=== PATIENT | male | born 1960 | race African-American/Black ===

== ENCOUNTER 2022-04-18 10:27 | Inpatient (IN) | payer MEDICARE, OTHER ==
[~2022-04-18] VITALS: Ht 182.9 cm; Wt 77.1 kg
--- NOTE | 2022-04-18 11:00 | NUR ---
URINE COLLECTED AND SENT TO LAB
--- NOTE | 2022-04-18 11:00 | NUR ---
BIBMOTHER FOR SNF PLACEMENT, UNABLE TO TAKE CARE BY MOTHER, C/O OF WEAKNESS. PLACED ON BED, AAOX3, BREATHING EVEVN AND UNLABORED.
--- NOTE | 2022-04-18 11:20 | NUR ---
IV THERAPY NURSE AT BEDSIDE
[2022-04-18 11:35] LABS: BILIRUBIN,URINE NEGATIVE (NEGATIVE); COLOR,URINE YELLOW (YELLOW); LEUKOCYTE ESTERASE ,URINE NEGATIVE (NEGATIVE); NITRITE, URINE NEGATIVE (NEGATIVE); PH,URINE 5.5 (5.0-8.0); PROTEIN,URINE NEGATIVE (NEGATIVE); UGLUCOSE NEGATIVE (NEGATIVE); UROBILINOGEN,URINE 0.2 EU/dL (0.2)
[2022-04-18 11:56] LABS: BACTERIA,URINE None seen /HPF (None Seen); MUCUS,URINE Few /LPF (None Seen); RBC,URINE 0-2 /HPF (0-2); SQUAMOUS EPITHELIAL CELL,UR Rare /HPF (None Seen); WBC,URINE 0-2 /HPF (0-3)
[2022-04-18 11:57] LABS: BASOPHILS % (AUTO) 0.5 % (0.0-2.0); EOSINOPHILS % (AUTO) 3.7 % (0.0-6.0); HEMATOCRIT 34 % (39-51); HEMOGLOBIN 10.7 g/dL (13.5-17.5); LYMPHOCYTES # (AUTO) 1.1 K/uL (0.8-4.8); LYMPHOCYTES % (AUTO) 22.3 % (20.0-44.0); MEAN CORPUSCULAR HGB CONC 32 g/dl (31.0-36.0); MEAN CORPUSCULAR VOLUME 90 fL (80-96); MONOCYTES # (AUTO) 0.7 K/uL (0.1-1.30); MONOCYTES % (AUTO) 14.3 % (2.0-12.0); NEUTROPHILS # (AUTO) 2.9 K/uL (1.8-8.9); NEUTROPHILS % (AUTO) 59.2 % (43.0-81.0); PLATELET COUNT (AUTO) 427 K/uL (150-450); RED BLOOD CELL COUNT(AUTO) 3.72 MIL/uL (4.5-6.0); WHITE BLOOD COUNT (AUTO) 4.9 K/uL (4.3-11.0)
[2022-04-18 12:40] LABS: ALANINE AMINOTRANSFERASE 23 U/L (12-78); ALBUMIN 3.2 g/dL (3.4-5.0); ALCOHOL, BLOOD < 3 mg/dL (0-0); ALKALINE PHOSPHATASE 95 U/L (46-116); ASPARTATE AMINOTRANSFERASE 15 U/L (15-37); BILIRUBIN,DIRECT 0.1 mg/dL (0.0-0.2); BILIRUBIN,TOTAL 0.2 mg/dL (0.2-1.0); CALCIUM, SERUM 9.3 mg/dL (8.5-10.1); CARBON DIOXIDE 29 mmol/L (21-32); CHLORIDE 104 mmol/L (98-107); GLUCOSE 100 mg/dL (74-106); POTASSIUM 4.2 mmol/L (3.5-5.1); SODIUM SERUM 141 mmol/L (136-145); TOTAL PROTEIN, SERUM 7.6 g/dL (6.4-8.2); UREA NITROGEN, BLOOD 14 mg/dL (7-18)
[2022-04-18 12:43] LABS: ACETAMINOPHEN 10 ug/ml (10-30)
[2022-04-18] MEDS ORDERED: ACETAMINOPHEN ES 500 MG TABLET ONE (16:20)
[2022-04-18] MEDS ORDERED: ACETAMINOPHEN ES 500 MG TABLET PO ONE (16:30)
--- NOTE | 2022-04-18 16:31 | NUR ---
SWAB FOR COVID19 SENT TO LAB
--- NOTE | 2022-04-18 16:34 | NUR ---
SS note: DANIELLE met with the pt. and the pt.'s mother, Zandra Burton [phone] at bedside. The pt. is a 61 year old male who was connor in by his mother due to "wandering, family's innability to care for him at home". The pt. is alert & oriented x 2 and not oriented to time and situation. The pt. appears well-groomed, pleasantly confused and is a poor historian. The pt. denies SI/HI and denies hallucinations. Pt. states he has had auditory non-commading hallucinations at times but not currently. Pt. denies previous mental health diagnosis and denies taking medication for his mental health. The pt.'s mother, Zandra Burton [phone] provided collateral information. Per Zandra, the pt. got Covid in February 2022 and was admitted to [facility] for 1 week.Per Zandra, [facility] pt. was diagnosed with encephalopathy as a result of COVID. Zandra stated that she is unable to care for the pt. and he wanders and he is scared he will get lost one day and wouldlike placement for him. Pt. expressed being agreeable to placement at a locked facility. Per Zandra, she has reached out to [facility] [[address], [place] [id number] ] and they informed her the pt. needs to be medically cleared to be admitted. Zandra then stated she connor him to [facility] for medical clearance. D[facility] and [phone] and Principal Gifts Officer, , who will work on possible admission. Resources: DANIELLE notified the pt. and his mother, Zandra Burton [phone] who are agreeable. DANIELLE discussed with . DANIELLE provided Zandra with New Lifestyles Guide to Fci for alternate options for the future and thw following senior resources: ABUSE PREVENTION: ELDER ABUSE HOTLINE (26/01) ADULT PROTECTIVE SERVICES HOTLINE LONG-TERM CARE [facility] - sfv [facility] AREA ON AGING (HOTLINE) ADULT DAY HEALTH CARE CARE CENTERS: Private pay or Medi-karime funded adult day care [facility] , [facility] , [facility] , [facility] Adult Day Health Care , [facility] Adult Day Health Care , [facility] Adult Daycare Center , [place] [facility] , [facility] , [place] ALZHEIMER'S DISEASE/DEMENTIA: Alzheimer's Association Helpline [facility] www.alz.org/[facility] Department of Aging www.lacity.org Family Caregiver [place] www.caregiver.org [place] Caregiver Resources Center/Family Support www.[facility].org CANCER RESOURCES: [place] Cancer Society www.cancer.org Cancer Support Community www.CancerSupportVvsb.org: CancerCare www.cancercare.org [facility] Cancer Support Center www.[facility].org COMMUNITY HEALTH ASSOCIATIONS: AARP www.aarp.org ALS Association (ask for Cindy) www.als.org [place] Diabetes Association www.diabetes.org [place] Heart Association www.heart.org [place] Lung Association www.lungusa.org [place] Parkinson Disease Association www.apdaparkinson.org Fijian [place] , www.redcross.org Arthritis Foundation www.arthritis.org Crohn's & Colitis Foundation of [place]ian www.ccfa.org/chapters/elise National Multiple Sclerosis Society www.nationalmssociety.org Myasthenia Gravis Foundation www.myasthenia-ca.org National Stroke Association www.stroke.org CONSERVATORSHIP & GUARDIANSHIP: AARP [facility] Legal Services Center for Health Care Rights Eldercare Information and Referral Transmission Supervisor [facility]: [facility] Referral Service [facility] Legal Services Office of the Public Guardian [place] EYESIGHT DISORDER RESOURCES: [place] Macular Degeneration Foundation [facility] www.acmc healthcare systeminstitpepeekeo.org GRIEF AND BEREAVEMENT RESOURCES: The Gathering Place , [facility] Alliance THE PIERSON Connection , [facility] Bereavement Center , [place] HEARING DISORDER RESOURCES: [place] Telephone Access Program Deaf and Disabled Telecommunications Program www.ddtp.cpu.ca.gov HearRx Hearing Centers ([place]) Better Hearing Systems , [place] GLAD ([facility] Agency on Deafness) V/ TTY; General Manager Road Production , [facility] Hearing [facility] -low income hearing aid assistance www.Bar & Club Statshearingfoundation.org [place] [facility] Rena HELP AT HOME - CAREGIVER SUPPORT: In Home Support Services (Must have Medi-Karime to be eligible) *Ask for a list of agencies that provide services to assist with care in the home. Local Senior Centers also have listings of care providers. HOME SAFETY MODIFICATIONS AND EQUIPMENT: Senior centers have additional referrals. [place] RoboteX and BioDelivery Sciences International Investment Dept. Handyworker Program (low income) or Visit http://hcidla.[facility].org/qno-pwalgl-jw for more information National Seating and Mobility and/or ; Forever Active www.foreverElectric Cloud.Zadspace Stay Home Safe www.Stayhomesafe.Zadspace LIFE ALERT RESPONSE SYSTEM: Adhezion Biomedical Lifeline Services 031-129-9808 www. Real Time Tomography Life Alert 728-060-9796 www.Kinoos Life Station 574-827-7867 www.Clarion Research Groupation.Zadspace Safe Return 625-032-9537 www.alz.or/safereturn Cell Phones for Seniors www.Iterable MEALS AND FOOD PROGRAMS: [place] Meals on Wheels [phone] [place] Meals on Wheels [phone] [facility] [phone] [place] to the Homebound [phone] [place] to the Homebound [phone] [facility] to the Homebound [phone] [facility] to the Homebound [phone] JacobTulio Jose [phone] [facility] [phone] ONE Generation [phone] [facility] [phone] [facility] [phone] Meals on Wheels [phone] For all ages: $6.85/ meal w side. Delivered M-F from 10 am-1pm. Application and payment is done over the phone. Frozen meals available for weekends. Emergency Food [facility] [phone] Episcopal Trial Lawyer [phone] [facility] [phone] Lion Ordoñezan Outreach- Brown bag lunches [phone] JORGE ALBERTO [facility] [phone] MEAL/GROCERY DELIVERY PROGRAMS: 's Senior Gourmet Meals [phone]- [facility] [phone]- [facility] Magic Kitchen [phone] Mom's Meals [phone] (ask [place] for Discount Select grocery stores may provide delivery. MEDICAL INSURANCE SUPPORT SERVICES: Center for Health Care Rights [phone] Health Insurance Counseling/Advocacy Programs (HICAP)-Must have Medicare. Offers counseling for Medi-Karime eligibility [phone] Department of Public Trial Lawyer [phone] www.[facility].ca.gov Medicare [phone] www.socialsecurity.org Social Security [phone] SENIOR ACTIVITY PROGRAMS: *Contact a local senior center, adult school, recreation facility or community college for education, fitness, recreation, and social programs. Aquatic Therapy and Adapted Exercise programs through [facility] [phone] Encore at [facility] [phone] www.[facility]/encore H2U- Senior Friends [phone] [facility] Senior Programs [phone] www.oasisnet.org Suddenly 65 www.lsmotncg82.com SENIOR CENTERS: [facility] [phone] [facility] Center[facility] [phone] [facility] [phone] [facility] Dexter [phone] [facility] [phone] [facility] [phone] [facility] [phone] [facility] [phone] One Generation, [facility] [phone] [facility] [phone] [facility] [phone] [facility] [phone] [facility] [phone] TRANSPORTATION: Local [facility] Centers may have applications for transportation programs and additional resources. ACCESS Services [phone] Transportation for seniors and disabled persons 7 days a week requiring 254 hr. advance reservation. Must apply and register for program mica eligible. [employer] [phone] or [phone] Transportation for seniors and persons with ADA card/metro disabled card in the [facility]. M-F only. Must register for services. ONE GENERATION [phone] Serves 65 years + in conjunction with Impres Medical program. Must be registered with both programs. A to B Transport [phone] Provides wheelchair/gurney van service. Adult Medical Transport [phone] Accepts [facility] with prior authorization. Care Van [phone] Provides wheelchair Transport. [facility] Wide Transportation [phone] Provides gurney service Gentle [facility] [phone] Gurney Transport. [facility] Transportation [phone] wheelchair & gurney transport [facility] Transportation [phone] wheelchair & gurney transport [place] Non-Emergency Transport [phone] wheelchair & gurney transport [facility] Living [place] [phone] Short Term Transportation primarily for adults with disabilities on social security income. Nominal fee may apply and a reservation is required. [facility] Avance Pay [phone] or [phone] Xecced [phone] [place] [address] Referral Services -[phone] For additional programs & services VETERANS RESOURCES: Submissions for Aid and Attendance should be done directly to Federal VA office locatd at : [address] [facility] [phone] National Caregiver Support Line [phone] Karime Sepulveda Veterans Services Field Office [phone] [place] Department of Affairs [phone] Pension Information [phone]
[2022-04-18] MEDS ORDERED: ARIP15TA3 PO (17:22)
[2022-04-18] MEDS ORDERED: LORA-259 PO (17:22)
[2022-04-18] MEDS ORDERED: PANT40TA49 PO (17:22)
--- NOTE | 2022-04-18 18:06 | NUR ---
BED 313-2
--- NOTE | 2022-04-18 18:07 | NUR ---
ROOM 313-2
--- NOTE | 2022-04-18 18:19 | NUR ---
REPORT GIVEN TO [facility] ROOM 313-2
[2022-04-18 20:00] VITALS: BP 130/74
--- NOTE | 2022-04-18 20:30 | NUR ---
RN OPENING NOTE RECEIVED PATIENT FROM ER VIA GURNEY. PATIENT IS STABLE AND AMBULATORY. PATIENT IS AWAKE, ALERT AND ORIENTED X 2. ON ROOM AIR; TOLERATING WELL. BREATHING EVEN AND UNLABORED. NOT IN ANY FORM OF RESPIRATORY DISTRESS. DENIES ANY PAIN OR DISCOMFORT OF THIS TIME. ABLE TO MAKE NEEDS KNOWN. BODY ASSESSMENT DONE; SKIN IS WARM TO TOUCH AND INTACT. WITH IV ACCESS ON RIGHT ANTECUBITAL 20g; PATENT AND INTACT INFUSING WITH LR 1L REGULATED @ 60 ML/HR; FLUSHES WELL. NO INFILTRATION NOTED. SAFETY MEASURES IMPLEMENTED: CALL LIGHT AND TABLE WITHIN REACH, SIDE RAILS UP X 2, BED IN LOWEST LOCKED POSITION. WILL CONTINUE TO MONITOR.
[2022-04-18] MEDS: ACETAMINOPHEN 325 MG TABLET PO PRN (23:21)
[2022-04-19] MEDS ORDERED: ONDANSETRON HCL/PF 4 MG/2 ML VIAL IVP PRN
[2022-04-19] MEDS ORDERED: MAGNESIUM HYDROXIDE 30 ML UDC PO PRN
[2022-04-19] MEDS ORDERED: MAG HYDROX/AL HYDROX/SIMETH 30 ML UDC PO PRN
[2022-04-19] MEDS ORDERED: ACETAMINOPHEN 325 MG TABLET PO PRN
[2022-04-19] MEDS ORDERED: Z GUARD REMEDY 4 OZ OINT TP PRN
[2022-04-19] MEDS: IV LR 1000 ML 1,000 ML IV PRN (00:14)
[2022-04-19] MEDS: ENOXAPARIN SODIUM 40 MG/0.4 ML DISP.SYRIN SQ SCH ×2 (00:24→21:03)
--- NOTE | 2022-04-19 03:47 | NUR ---
RN NOTE PATIENT PULLED IV SITE; PRESSURE DRESSING DONE; TOLERATING WELL. REFUSED INSERTION OF NEW IV SITE.
[2022-04-19 06:32] LABS: BASOPHILS % (AUTO) 0.4 % (0.0-2.0); EOSINOPHILS % (AUTO) 2.8 % (0.0-6.0); HEMATOCRIT 35 % (39-51); HEMOGLOBIN 11.2 g/dL (13.5-17.5); LYMPHOCYTES # (AUTO) 1.3 K/uL (0.8-4.8); LYMPHOCYTES % (AUTO) 26.7 % (20.0-44.0); MEAN CORPUSCULAR HGB CONC 32 g/dl (31.0-36.0); MEAN CORPUSCULAR VOLUME 90 fL (80-96); MONOCYTES # (AUTO) 0.5 K/uL (0.1-1.30); MONOCYTES % (AUTO) 11.3 % (2.0-12.0); NEUTROPHILS # (AUTO) 2.8 K/uL (1.8-8.9); NEUTROPHILS % (AUTO) 58.8 % (43.0-81.0); PLATELET COUNT (AUTO) 445 K/uL (150-450); RED BLOOD CELL COUNT(AUTO) 3.93 MIL/uL (4.5-6.0); WHITE BLOOD COUNT (AUTO) 4.8 K/uL (4.3-11.0)
[2022-04-19 06:44] LABS: THYROID STIMULATING HORMONE 1.777 uIU/mL (0.358-3.74)
[2022-04-19 06:46] LABS: ALBUMIN 3.3 g/dL (3.4-5.0); BILIRUBIN,TOTAL 0.4 mg/dL (0.2-1.0); CALCIUM, SERUM 9.5 mg/dL (8.5-10.1); MAGNESIUM 1.9 mg/dL (1.8-2.4); PHOSPHORUS 4.7 mg/dL (2.5-4.9); POTASSIUM 3.9 mmol/L (3.5-5.1)
[2022-04-19] MEDS: ACETAMINOPHEN 325 MG TABLET PO PRN (06:55)
--- NOTE | 2022-04-19 06:55 | NUR ---
RN CLOSING NOTE PATIENT IN BED; AWAKE, A/O X 2. STABLE ON ROOM AIR. RESPIRATION EQUAL AND NONLABORED. IN NO APPARENT DISTRESS. ALL NEEDS ATTENDED. ALL DUE MEDS GIVEN ORDERED. SAFETY MEASURES MAINTAINED: CALL LIGHT AND TABLE WITHIN REACH, SIDE RAILS UP X 2, BED IN LOWEST LOCKED POSITION. ENDORSED TO MORNING SHIFT FOR CECILLE.
--- NOTE | 2022-04-19 07:20 | NUR ---
RN OPENING NOTES RECEIVED PATIENT SITTING IN CHAIR, NO SIGNS OF ACUTE DISTRESS NOTED. ON ROOM AIR, NO SOB NOTED, BREATHING EVEN AND UNLABORED. NO SIGNS OF ACUTE DISTRESS NOTED. DENIES ANY PAIN OR DISCOMFORT AT THIS TIME. NO IV ACCESS AT THIS TIME. WILL TRY TO REINSERT IF PATIENT AGREES. SAFETY MEASURE IN PLACE. BED IN LOWEST AND LOCKED POSITION, SIDE RAILS UP X2, CALL LIGHT PLACED WITHIN EASY REACH. WILL CONTINUE TO MONITOR PATIENT.
[2022-04-19 08:00] VITALS: BP 148/78
[2022-04-19] MEDS: PANTOPRAZOLE 40 MG TABLET.DR PO SCH ×2 (08:06→16:27)
[2022-04-19] MEDS: ARIPIPRAZOLE 5 MG TABLET PO SCH (08:06)
--- NOTE | 2022-04-19 09:30 | NUR ---
RN NOTE NEW PERIPHERAL LINE INSERTED ON RIGHT FOREARM #20G, WITH GOOD BLOOD RETURN, COVERED WITH TRANSPARENT DRESSING.
[2022-04-19] MEDS ORDERED: THIA100T68 PO (10:49)
[2022-04-19] MEDS ORDERED: CYAN50004 PO (10:49)
[2022-04-19] MEDS ORDERED: FOLI5VIA2 PO (10:49)
[2022-04-19] MEDS ORDERED: FOLI0.8T2 PO (10:49)
[2022-04-19] MEDS: LORAZEPAM 1 MG TABLET PO PRN ×2 (12:40→21:05)
[2022-04-19 16:00] VITALS: BP 113/58
--- NOTE | 2022-04-19 18:48 | NUR ---
RN CLOSING NOTES PATIENT SITTING IN CHAIR, NO SIGNS OF ACUTE DISTRESS NOTED. REMAINS STABLE ON ROOM AIR, NO SOB NOTED, BREATHING EVEN AND UNLABORED. NO SIGNS OF ACUTE DISTRESS NOTED. DENIES ANY PAIN OR DISCOMFORT AT THIS TIME. AMBULATES AD SHEILA WITH STEADY GAIT. IV ACCESS ON RIGHT FOREARM #20G, INTACT AND PATENT WITH LR @60ML/HR RUNNING. SAFETY MEASURE MAINTAINED. BED IN LOWEST AND LOCKED POSITION, SIDE RAILS UP X2, CALL LIGHT PLACED WITHIN EASY REACH. WILL ENDORSE TO NEXT SHIFT FOR CONTINUITY OF CARE.
--- NOTE | 2022-04-19 19:30 | NUR ---
MS RN OPENING NOTE RECEIVED PATIENT SITTING IN CHAIR, NO SIGNS OF ACUTE DISTRESS NOTED. ON ROOM AIR, NO SOB NOTED, BREATHING EVEN AND UNLABORED. NO SIGNS OF ACUTE DISTRESS NOTED. DENIES ANY PAIN OR DISCOMFORT AT THIS TIME. IV ACCESS TO RIGHT FA 20 G, INTACT, AND PATENT. SAFETY MEASURE IN PLACE: BED IN LOWEST AND LOCKED POSITION, SIDE RAILS UP X2, CALL LIGHT WITHIN EASY REACH. WILL CONTINUE TO MONITOR PATIENT.
[2022-04-19 20:00] VITALS: BP 118/76
--- NOTE | 2022-04-20 07:05 | NUR ---
MS RN CLOSING NOTE PATIENT IN BED; AWAKE, A/O X 2. STABLE ON ROOM AIR. RESPIRATION EQUAL AND NONLABORED. IN NO APPARENT DISTRESS. ALL NEEDS ATTENDED. ALL DUE MEDS GIVEN ORDERED. SAFETY MEASURES MAINTAINED: CALL LIGHT WITHIN REACH, SIDE RAILS UP X 2, BED LOCKED IN LOWEST POSITION. WILL ENDORSE TO MORNING SHIFT FOR CECILLE.
--- NOTE | 2022-04-20 07:29 | NUR ---
MS RN OPENING NOTE RECEIVED PATIENT AWAKE, SITTING AND RESTING IN THE CHAIR. PT A/O X2-3. REORIENTED PT NEEDED. ON RA, TOLERATING WELL. NO SOB NOTED. NOT IN ANY SIGNS OF ACUTE DISTRESS NOTED. IV ACCESS ON RFA #20G, INTACT AND PATENT WITH LR INFUSING AT 60ML/HR. SAFETY MEASURE IN PLACE: BED IN LOWEST AND LOCKED POSITION, SIDE RAILS UP X2, AND CALL LIGHT PLACED WITHIN EASY REACH. WILL CONTINUE TO MONITOR PT.
[2022-04-20 08:00] VITALS: BP 117/69
[2022-04-20] MEDS: PANTOPRAZOLE 40 MG TABLET.DR PO SCH ×2 (09:03→16:05)
[2022-04-20] MEDS: ARIPIPRAZOLE 5 MG TABLET PO SCH (09:03)
[2022-04-20] MEDS: IV LR 1000 ML 1,000 ML IV PRN (12:23)
[2022-04-20 16:00] VITALS: BP 132/77
[2022-04-20] MEDS: LORAZEPAM 1 MG TABLET PO PRN ×2 (16:33→23:02)
--- NOTE | 2022-04-20 16:35 | NUR ---
RN NOTE PT NOTED WITH EPISODES OF ANXIETY AND AGITATION. CALMLY REDIRECTED PT AND PROVIDED DISTRACTIONS BUT INEFFECTIVE. ATIVAN 1MG PO ADMINISTERED ORDERED PRN BID FOR ANXIETY AND AGITATION. WILL MONITOR AND REASSESS PT.
--- NOTE | 2022-04-20 19:24 | NUR ---
MS RN CLOSING NOTE PATIENT AWAKE, SITTING AND RESTING IN THE CHAIR. PT A/O X2-3. REORIENTED PT NEEDED. ON RA, TOLERATING WELL. NO SOB NOTED. NOT IN ANY SIGNS OF ACUTE DISTRESS NOTED. IV ACCESS ON RFA #20G, INTACT AND PATENT WITH LR INFUSING AT 60ML/HR. ALL NEEDS ATTENDED. KEPT CLEAN AND COMFORTABLE. SAFETY MEASURE IN PLACE: BED IN LOWEST AND LOCKED POSITION, SIDE RAILS UP X2, AND CALL LIGHT PLACED WITHIN EASY REACH. ENDORSED TO EMERGENCY TELECOMMUNICATIONS DISPATCHER NURSE FOR CECILLE.
[2022-04-20 20:00] VITALS: BP 128/76
[2022-04-20] MEDS: ENOXAPARIN SODIUM 40 MG/0.4 ML DISP.SYRIN SQ SCH (21:02)
--- NOTE | 2022-04-21 07:15 | NUR ---
RN CLOSING NOTE PATIENT IN BED; AWAKE, A/O X 2. STABLE ON ROOM AIR. RESPIRATION EQUAL AND NONLABORED. IN NO APPARENT DISTRESS. ALL NEEDS ATTENDED. PT PULLED IV ACCESS. TRIED TO INSERT ANOTHER IV LINE, BUT WAS UNABLE. ALL DUE MEDS GIVEN ORDERED. SAFETY MEASURES MAINTAINED: CALL LIGHT AND TABLE WITHIN REACH, SIDE RAILS UP X 2, BED IN LOWEST LOCKED POSITION. WILL ENDORSE TO MORNING SHIFT FOR CECILLE.
--- NOTE | 2022-04-21 07:25 | NUR ---
MS RN OPENING NOTE RECEIVED PATIENT AWAKE, SITTING AND RESTING IN THE CHAIR. PT A/O X2-3. REORIENTED PT NEEDED. ON RA, TOLERATING WELL. NO SOB NOTED. NOT IN ANY SIGNS OF ACUTE DISTRESS NOTED. NO C/O OF PAIN AND DISCOMFORT , NO IV ACCESS NOTED PULLED OUT BY PATIENT AND REFUSING TO BE RE INSERTED . SAFETY MEASURE IN PLACE: BED IN LOWEST AND LOCKED POSITION, SIDE RAILS UP X2, AND CALL LIGHT PLACED WITHIN EASY REACH. WILL CONTINUE TO MONITOR PT.
[2022-04-21 08:00] VITALS: BP 113/64
[2022-04-21] MEDS: PANTOPRAZOLE 40 MG TABLET.DR PO SCH (09:28)
[2022-04-21] MEDS: ARIPIPRAZOLE 5 MG TABLET PO SCH (09:29)
--- NOTE | 2022-04-21 15:30 | NUR ---
MS SURGICAL GARMENT INSPECTOR NOTES PATIENT IS WITH ORDER FOR DISCHARGE TODAY TO [facility] , ALL DUE MEDS GIVEN , DISCHARGED PAPERS WERE PREPARED AND PATIENT IS GOING TO [facility] , MARCIE ANTIGEN DONE FOR DISCHARGE PURPOSES AND RESULTED NEGATIVE , DISCHARGE INSTRUCTIONS PROVIDED TO PATIENT AND FAMILY , ALSO REPORT WAS GIVEN TO FACILITY HIS GOING AND SPOKE WITH GAMA - ELIESER - WAS PICKED UP AROUND 1430 AND REPORT WAS GIVEN TO THE AMBULANCE PERSONNEL , D/C INSTRUCTIONS PROVIDED REGARDING MEDICATIONS , TO REPORT FOR ANY CECILLE AND SAFETY PRECAUTIONS , ALL BELONGINGS WERE BROUGHT BY THE PATIENT AND BELONGINGS FORM WAS SIGNED BEFORE DISCHARGE , PATIENT LEFT AROUND 1500 WITH NO SOB NO DISTRESS NOTED AND NO C/O OF PAIN AND DISCOMFORT
== END 2022-04-21 14:58 | DRG 885 ==
LOC: EDBD 10:33 → ER 10:33 → MED 18:58
PROVIDERS: ADMIT Nurse Practitioner Acute Care; ATTEND Nurse Practitioner Acute Care
DX: F23 Brief psychotic disorder (principal); E51.2 Wernicke's encephalopathy; F10.159 Alcohol abuse with alcohol-induced psychotic disorder, unspecified; F02.82 Dementia in other diseases classified elsewhere, unspecified severity, with psychotic disturbance; F03.93 Unspecified dementia, unspecified severity, with mood disturbance; Z86.73 Personal history of transient ischemic attack (TIA), and cerebral infarction without residual deficits; F19.90 Other psychoactive substance use, unspecified, uncomplicated; Z20.822 Contact with and (suspected) exposure to COVID-19; R62.7 Adult failure to thrive; I10 Essential (primary) hypertension; Y90.0 Blood alcohol level of less than 20 mg/100 ml; E78.5 Hyperlipidemia, unspecified; D53.9 Nutritional anemia, unspecified; K21.9 Gastro-esophageal reflux disease without esophagitis; Z86.16 Personal history of COVID-19; Z87.891 Personal history of nicotine dependence; F12.91 Cannabis use, unspecified, in remission; Z79.899 Other long term (current) drug therapy; I65.22 Occlusion and stenosis of left carotid artery
CPT/HCPCS: 36415; 80048-TC; 80053-TC; 80061-TC; 80076-TC; 81001; 83540-TC; 83735-TC; 84100-TC; 84443-TC; 85025-TC; 87081-TC; 93307-TC; 97112-TC; 97116-TC; 97530-TC; C9803; G0378; G0480; J1650; J3490; J7050; J7120